=== PATIENT | male | born 1955 ===

== ENCOUNTER → 2016-10-04 | Outpatient (CLI) | payer OTHER ==
[~2016-10-04] VITALS: Ht 175.3 cm; Wt 77.1 kg
[~2016-10-04] MED LIST: BUPIVACAINE 0.5% 50 ML VIAL. IJ ONE; IOHEXOL 300 MG/ML 50 ML VIAL. IJ ONE; methylPREDNISolone ACETATE 80 MG/ML VIAL. IM ONE
--- NOTE | 2016-10-04 10:43 | RAD ---
Fluoroscopic right hip injection History: Pain. Arthritis. Comparison: 10/03/2016 Procedure: Risks and benefits of the procedure were discussed with the patient. Written informed consent was obtained. Patient was laid supine on the fluoroscopy table. An appropriate site on the skin over the right hip was marked. The skin was prepped and draped in usual sterile fashion. Local anesthesia was provided with 1% lidocaine. Under intermittent fluoroscopic visualization, 22-gauge spinal needle was inserted into the right hip joint. Intra-articular location was confirmed with iodinated contrast injection. A total of 4 mL Omnipaque 300 iodinated contrast was injected into the joint joint followed by 80 mg of Depo-Medrol (in volume of 1 mL) as well as 5 mL of 0.5% Sensorcaine. Needle was then removed. Patient tolerated procedure well and there were no acute ill effects. 2 spot fluoroscopic images were obtained for the PACS. Total fluoroscopic time was 0.6 minutes. Impression: Technically successful right hip injection of steroids and anesthetic.
== END | disposition home or self-care (01) ==
LOC: RAD 07:52
PROVIDERS: ATTEND Otolaryngology
DX: M16.11 Unilateral primary osteoarthritis, right hip (principal)
CPT/HCPCS: 20610; 77002; J1040; J3490; Q9967